=== PATIENT | male | born 2000 | race Hispanic/Latino ===

== ENCOUNTER 2022-08-21 19:27 | Emergency (ER) | payer OTHER ==
[~2022-08-21] VITALS: Ht 165.1 cm; Wt 63.5 kg
[2022-08-21] MEDS ORDERED: NAPROSYN500 MG PO (21:51)
== END 2022-08-21 22:20 | disposition home or self-care (01) ==
LOC: FSED 19:55
DX: M79.672 Pain in left foot (principal); M79.671 Pain in right foot; S90.32XA Contusion of left foot, initial encounter; S90.31XA Contusion of right foot, initial encounter; W16.512A Jumping or diving into swimming pool striking water surface causing other injury, initial encounter; Y92.89 Other specified places as the place of occurrence of the external cause
CPT/HCPCS: 99283